=== PATIENT | female | born 2000 | race Caucasian/White ===

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

== ENCOUNTER → 2021-07-28 | Outpatient (CLI) | payer BC ==
[~2021-07-28] MED LIST: ADAP1GEL7 TOP; CIPR-249 PO; DOXY-342 PO; IBUP-1114 PO; JUBL1SOL EX; OCUF0.25 OD; ONDA4TAB6 PO; PRED20TA PO; PRIL20TA2 PO; PROT1TAB2 PO; SUCR1SS PO
[2021-07-28 15:49] LABS: RSV AMPLIFICATION NEGATIVE (NEGATIVE)
== END ==
LOC: M LAB 14:12
PROVIDERS: ATTEND Emergency Medicine
DX: Z20.822 Contact with and (suspected) exposure to COVID-19 (principal); Z11.59 Encounter for screening for other viral diseases

== ENCOUNTER → 2022-02-24 | Outpatient (CLI) | payer BC ==
[~2022-02-24] MED LIST changes: +CLIN150C17 PO; +KETO2CR TOP
[2022-02-24 13:59] LABS: BASO # 0.1 10^3/uL (0.0-0.2); BASO % 0.8 % (0.0-1.0); EOS # 0.2 10^3/uL (0.0-0.5); EOS % 3.6 % (0.0-3.0); HEMATOCRIT 37.6 % (36.0-47.0); HEMOGLOBIN 12.5 g/dl (12.0-15.5); LYMPH # 1.5 10^3/uL (1.5-5.0); LYMPH % 22.1 % (24.0-44.0); MEAN CORPUSCULAR HEMOGLOBIN 31.3 pg (27.0-33.0); MEAN CORPUSCULAR HGB CONC 33.2 g/dl (32.0-36.5); MEAN CORPUSCULAR VOLUME 94.2 fl (80.0-96.0); MONO # 0.7 10^3/uL (0.0-0.8); MONO % 10.4 % (2.0-8.0); NEUTROPHILS # 4.2 10^3/uL (1.5-8.5); NEUTROPHILS % 62.9 % (36.0-66.0); PLATELET COUNT, AUTOMATED 219 10^3/uL (150-450); RED BLOOD COUNT 3.99 10^6/uL (4.00-5.40); WHITE BLOOD COUNT 6.7 10^3/uL (4.0-10.0)
[2022-02-24 14:19] LABS: ERYTHROCYTE SEDIMENTATION RATE 3 mm/hr (0-20)
[2022-02-24 14:42] LABS: BLOOD UREA NITROGEN 14 MG/DL (7-18); CALCIUM LEVEL 9.5 MG/DL (8.5-10.1); CARBON DIOXIDE LEVEL 28 MEQ/L (21-32); CHLORIDE LEVEL 107 MEQ/L (98-107); CREATININE FOR GFR 0.68 MG/DL (0.55-1.30); GLUCOSE, FASTING 90 MG/DL (70-100); MAGNESIUM LEVEL 2.4 MG/DL (1.8-2.4); POTASSIUM SERUM 3.9 MEQ/L (3.5-5.1); RHEUMATOID FACTOR QUANT < 10.0 IU/ML (<15.0); SODIUM LEVEL 140 MEQ/L (136-145)
[2022-02-25 12:28] LABS: TOTAL 25(OH) VITAMIN D 32.1 NG/ML (30.0-100.0); VITAMIN B12 LEVEL 286 PG/ML (247-911)
[2022-02-28 00:07] LABS: ANTINUCLEAR ANTIBODIES DIRECT Negative (Negative); CYCLIC CITRULLINATED PEPTIDE 4 units (0-19)
== END ==
LOC: M LAB 13:24
PROVIDERS: ATTEND Emergency Medicine
DX: M25.50 Pain in unspecified joint (principal)

== ENCOUNTER → 2022-12-27 | Outpatient (CLI) | payer OTHER ==
[~2022-12-27] MED LIST changes: -DOXY-342 PO; +DOXY100C81 PO; +OMEP10CASR PO; +TRET0.0212 TOP
== END ==
LOC: M LAB 09:46
PROVIDERS: ATTEND Emergency Medicine
DX: J06.9 Acute upper respiratory infection, unspecified (principal); Z11.52 Encounter for screening for COVID-19

== ENCOUNTER → 2023-02-18 | Outpatient (REF) | payer OTHER ==
[~2023-02-18] MED LIST changes: -DOXY100C81 PO; +DOXY100C82 PO
== END ==
LOC: M SFHCWAGY 13:33
PROVIDERS: ATTEND Nurse Practitioner Family
DX: Z12.4 Encounter for screening for malignant neoplasm of cervix (principal)

== ENCOUNTER → 2023-02-25 | Outpatient (CLI) | payer OTHER ==
[2023-02-25 14:25] LABS: MAGNESIUM LEVEL 2.4 MG/DL (1.8-2.4)
== END ==
LOC: M LAB 12:29
PROVIDERS: ATTEND Internal Medicine Gastroenterology
DX: K21.9 Gastro-esophageal reflux disease without esophagitis (principal)

== ENCOUNTER → 2023-12-22 | Outpatient (REF) | payer OTHER ==
[~2023-12-22] MED LIST changes: -ADAP1GEL7 TOP; +ADAP45GE TOP; +ONDA-282 PO; -ONDA4TAB6 PO; +TRET0.0540 TOP
[2023-12-22 16:49] LABS: C REACTIVE PROTEIN QUANTITATIV < 0.40 MG/DL (<1.0)
[2023-12-22 16:50] LABS: RHEUMATOID FACTOR QUANT < 3.5 IU/ML (<14)
[2023-12-24 23:03] LABS: CYCLIC CITRULLINATED PEPTIDE < 16 UNITS (<20)
[2023-12-26 16:37] LABS: HLA-B27 Negative (Negative)
== END ==
LOC: M LAB REF 16:23
PROVIDERS: ATTEND Internal Medicine
DX: M25.50 Pain in unspecified joint (principal)

== ENCOUNTER → 2024-01-16 | Outpatient (REF) | payer OTHER ==
[2024-01-19 13:57] LABS: ANA SCREEN, IFA NEGATIVE (NEGATIVE)
[2024-01-19 16:58] LABS: LYME TOTAL ANTIBODY CIA <= 0.90 Index (<=0.90)
== END ==
LOC: M LAB REF 13:54
PROVIDERS: ATTEND Internal Medicine
DX: M25.50 Pain in unspecified joint (principal)